=== PATIENT | female | born 1970 ===

== ENCOUNTER 2018-04-03 10:47 | Emergency (ER) | payer BC, OTHER ==
[2018-04-03 10:52] VITALS: RESP 18; TEMP 98.6; O2SAT 100
[2018-04-03] MEDS ORDERED: Sodium Chloride 0.9% 1,000 ML IV ONE (11:40)
[2018-04-03] MEDS ORDERED: Alum-Mag Hydrox-Simethicone Susp (30 mL) PO ONE (11:42)
--- NOTE | 2018-04-03 11:42 | C.PDOC ---
History Of Present Illness 47 y/o female pt presents to the ER c/o abdominal pain. Pt reports she was drinking alcohol yesterday and epigastric abdominal pain started last night. Associated sx includes vomiting. Pt denies any medical problems, fever, chills, diarrhea and back pain. Time Seen by Provider: 04/03/18 11:34 Chief Complaint (Nursing): Abdominal Pain History Per: Patient History/Exam Limitations: no limitations Onset/Duration Of Symptoms: Days (x1) Current Symptoms Are (Timing): Still Present Location Of Pain/Discomfort: Epigastric Past Medical History Reviewed: Historical Data, Nursing Documentation, Vital Signs Vital Signs: Last Vital Signs Temp 98.6 F 04/03/18 10:49 Pulse 71 04/03/18 10:49 Resp 18 04/03/18 10:49 BP 116/75 04/03/18 10:49 Pulse Ox 100 04/03/18 10:49 - Medical History PMH: Denies: Chronic Kidney Disease Surgical History: (1x) Family History: States: No Known Family Hx - Social History Hx Alcohol Use: Yes Hx Substance Use: No - Immunization History Hx Tetanus Toxoid Vaccination: No Hx Influenza Vaccination: No Hx Pneumococcal Vaccination: No Review Of Systems Except As Marked, All Systems Reviewed And Found Negative. Constitutional: Negative for: Fever, Chills Gastrointestinal: Positive for: Vomiting, Abdominal Pain (epigastric). Negative for: Diarrhea Musculoskeletal: Negative for: Back Pain Physical Exam - Physical Exam Appears: Non-toxic, No Acute Distress Skin: Warm, Dry Head: Normacephalic Eye(s): bilateral: Normal Inspection, EOMI Chest: Symmetrical Cardiovascular: Rhythm Regular Respiratory: Normal Breath Sounds Gastrointestinal/Abdominal: Soft, Tenderness (mild epigastric ), No Distention, No Guarding, No Rebound Back: No CVA Tenderness Extremity: Normal ROM (x4) Neurological/Psych: Oriented x3, Normal Speech ED Course And Treatment - Laboratory Results Result Diagrams: 04/03/18 11:59 04/03/18 11:59 O2 Sat by Pulse Oximetry: 100 (RA) Pulse Ox Interpretation: Normal Medical Decision Making Medical Decision Making: Impression: epigastric pain Plans: -- pepcid -- chem labs -- blood work -- maalox -- Zofran -- UA Disposition - Disposition Referrals: [facility] at [facility] [place] [Outside] [facility] at [facility] [Outside] [facility] at [place] [Outside] Disposition: HOME/ ROUTINE Disposition Time: 14:46 Condition: GOOD Prescriptions: Famotidine [Pepcid] 40 mg PO DAILY #30 tab Instructions: Gastritis, Alcohol Use - When Is Drinking a Problem?, Effects of Alcohol on Your Health Forms: [employer] (Libyan) - Clinical Impression Clinical Impression: Gastritis, Alcohol abuse - Scribe Statement The provider has reviewed the documentation as recorded by the Grey Garcia Do Provider Attestation: All medical record entries made by the Rupertoibahmet were at my direction and personally dictated by me. I have reviewed the chart and agree that the record accurately reflects my personal performance of the history, physical exam, me dical decision making, and the department course for this patient. I have also personally directed, reviewed, and agree with the discharge instructions and disposition.
--- NOTE | 2018-04-03 11:42 | C.PDOC ---
Time Seen by Provider: 04/03/18 11:34 Chief Complaint (Nursing): Abdominal Pain Past Medical History Vital Signs: Last Vital Signs Temp 98.6 F 04/03/18 10:49 Pulse 71 04/03/18 10:49 Resp 18 04/03/18 10:49 BP 116/75 04/03/18 10:49 Pulse Ox 100 04/03/18 10:49 - Medical History PMH: Denies: Chronic Kidney Disease Surgical History: (1x) - Social History Hx Alcohol Use: Yes Hx Substance Use: No - Immunization History Hx Tetanus Toxoid Vaccination: No Hx Influenza Vaccination: No Hx Pneumococcal Vaccination: No ED Course And Treatment O2 Sat by Pulse Oximetry: 100 Disposition - Disposition
[2018-04-03] MEDS ORDERED: Alum-Mag Hydrox-Simethicone Susp (30 mL) ONE (12:04)
[2018-04-03] MEDS ORDERED: Sodium Chloride 0.9% 1,000 ML ONE (12:05)
[2018-04-03 12:16] LABS: ALB/GLOB RATIO 1.4 (1.0-2.1); ALBUMIN 4.7 g/dL (3.5-5.0); ALT/SGPT 22 U/L (9-52); AST/SGOT 26 U/L (14-36); BLOOD UREA NITROGEN 12 mg/dL (7-17); CALCIUM 9.2 mg/dl (8.6-10.4); GFR NON-AFRICAN AMERICAN > 60
[2018-04-03 12:29] LABS: BASO % 0.3 % (0.0-2.0); HEMOGLOBIN 12.5 g/dL (11.0-16.0); LYMPH # 0.6 K/uL (1.0-4.3); LYMPH % 6.4 % (20.0-40.0); MEAN CELL VOLUME 88.8 fL (81.0-99.0); MEAN CORPUSCULAR HEMOGLOBIN 30.3 pg (27.0-31.0); MEAN CORPUSCULAR HGB CONC 34.1 g/dL (33.0-37.0); MONO # 0.3 K/uL (0.0-0.8); MONO % 2.9 % (0.0-10.0); NEUT % 90.4 % (50.0-75.0); PLATELET COUNT 177 K/uL (130-400); RBC 4.14 Mil/uL (3.80-5.20); RED CELL DISTRIBUTION WIDTH 12.9 % (11.5-14.5)
[2018-04-03 12:52] LABS: SQUAMOUS EPITHIAL 7 /hpf (0-5); URINE BILIRUBIN NEGATIVE (NEGATIVE); URINE BLOOD NEGATIVE (NEGATIVE); URINE CLARITY Clear (Clear); URINE COLOR Yellow (YELLOW); URINE GLUCOSE (UA) NORMAL (Normal); URINE LEUKOCYTE ESTERASE NEG Leu/uL (Negative); URINE PROTEIN 1+ mg/dL (NEGATIVE); URINE UROBILINOGEN NORMAL mg/dL (0.2-1.0)
[2018-04-03 13:08] LABS: BANDS 1 % (0-2); LYMPHOCYTE 4 % (20-40); MONOCYTE 2 % (0-10); NEUTROPHIL 93 % (50-75); PLATELET ESTIMATE NORMAL (NORMAL); TOTAL CELLS COUNTED 100
[2018-04-03 13:09] LABS: ANISOCYTOSIS SLIGHT; LARGE PLATELETS PRESENT
[2018-04-03 13:36] VITALS: BP 108/75; PULSE 66
[2018-04-03] MEDS ORDERED: Potassium Chloride 20 mEq ER Tab PO STA (14:23)
[2018-04-03] MEDS ORDERED: Potassium Chloride 20 mEq ER Tab PO ONE (14:30)
[2018-04-04] MEDS ORDERED: Potassium Chloride 20 mEq ER Tab PO ONE (14:18)
== END 2018-04-03 14:46 | disposition home or self-care (01) ==
LOC: C.ER 10:47
DX: K29.70 Gastritis, unspecified, without bleeding (principal); F10.10 Alcohol abuse, uncomplicated
CPT/HCPCS: 80053; 81001; 82009; 85025; 96361; 96374; 96375; 96376; 99284; J2405; J7030